=== PATIENT | female | born 1995 | race Hispanic/Latino ===

== ENCOUNTER 2020-03-22 21:31 | Emergency (ER) | payer OTHER, SELFPAY ==
--- NOTE | ~2020-03-22 | CT_ITS ---
EXAMINATION: CTA brain carotid EXAM DATE: 03/22/2020 23:42 INDICATION: Unsteady gait. Headache, dizziness and nausea. TECHNIQUE: Noncontrast head CT. Spiral CTA of the carotid arteries was performed with intravenous i njection 100 cc of Omnipaque 350. Axial, coronal, sagittal reformatted images reviewed. Additional r eformatted images created on dedicated 3-D workstation. NASCET comparable standard used to assess th e degree of arterial stenosis. Spiral CT angiogram cerebral arteries performed with the same intrave nous injection of contrast. Source images of the brain CTA transferred to dedicated workstation for 3 -D rotational image creation. Coronal, sagittal maximum intensity pixel images also reviewed. The d ose-length product (DLP) for this examination was 1888.51 mGy-cm. The exposure was tailored accordi ng to patient size, and iterative reconstruction (ASIR) was used as additional dose reduction techniq ue. There is no prior study for comparison. FINDINGS: There is no carotid plaque or stenosis. The vertebral arteries are codominant. There is rig ht-sided posterior communicating artery dominant posterior cerebral artery. There is no carotid or vertebral basilar arterial dissection or fibromuscular dysplasia. There are no cerebral artery aneur ysms. There is symmetric cerebral artery arborization. The sagittal, transverse and sigmoid sinuses e nhance normally, no venous sinus thrombosis. Internal cerebral veins also enhance normally. There is no acute intraparenchymal hemorrhage. No evidence of intraparenchymal brain mass lesion. N o evidence of acute infarction. There is no mass effect or midline shift. There is no obstructive hyd rocephalus suspected. There are no extra-axial collections. There are no calvarial acute fractures. There are no areas of abnormal enhancement on the postcontrast images. IMPRESSION: 1. Normal CTA brain carotid exam. Reviewed, dictated and finalized at location A.
[2020-03-22 22:05] VITALS: BP 152/88; PULSE 93; RESP 16; TEMP 36.8; O2SAT 100
--- NOTE | 2020-03-22 22:08 | ECG_ITS ---
Measurements Intervals [place] Rate: 77 P: 53 RI: 119 QRS: 61 QRSD: 98 T: 47 QT: 370 QTc: 419 Interpretive Statements SINUS RHYTHM CHANGES TO ECTOPIC ATRIAL RHYTHM WITH SHORT RI INTERVAL BASELINE ARTIFACT- II, III, AVL, AVF, V3-V4 ABNORMAL ECG Electronically Signed On 03-23-2020 7:41:44 CDT by Jemal Hoffmann D.O.
--- NOTE | 2020-03-22 22:18 | ED.DIZZY ---
HPI - Dizziness General Chief Complaint: Dizziness Stated Complaint: dizzy with nausea began yesterday, worsening today Time Seen by Provider: 03/22/20 22:17 Source: patient and family Mode of arrival: ambulatory Limitations: no limitations History of Present Illness HPI Narrative: Patient is a previously healthy 24-year-old female who presents for evaluation of unstable gait, headache and vision changes. Patient states she had noticed a headache that was gradual in onset yesterday, causing some intermittent blurry vision and difficulty with gait. Patient has had 3 near syncopal events per her . He states that he tried to go on a walk this evening with her dogs, and she was unable to due to her gait being so unsteady. He states that she has fallen several times at home. Patient denies any current vision changes. She reports very mild headache. She denies any neck pain. No numbness or weakness. Patient states the dizziness makes her feel very unstable. No current spinning sensation. Patient denies nausea or vomiting. Related Data Allergies Allergy/AdvReac Type Severity Reaction Status Date / Time No Known Allergies Allergy Verified 03/22/20 22:39 Review of Systems Review of Systems: Narrative: CONSTITUTIONAL: Denies fever, chills, or sweats. EYES: Intermittent blurry vision, no current blurred vision ENT: Denies rhinorrhea, congestion, sore throat, or otalgia. Patient denies ear drainage. CARDIOVASCULAR: Denies chest pain, palpitations, or edema. RESPIRATORY: Denies cough or dyspnea. GASTROINTESTINAL: Denies abdominal pain, nausea, vomiting, or diarrhea. GENITOURINARY: Denies dysuria or hematuria. SKIN: Denies rash or itching. MUSCULOSKELETAL: Denies back pain, joint pain, or myalgia. NEUROLOGIC: Reports mild headache, denies numbness or weakness, reports difficulty with ambulation Exam Narrative: Exam Narrative: GENERAL: Awake, alert, conversant HEAD: Normocephalic, atraumatic. EYES: PERRLA and EOMI. ENT: Nares clear, no rhinorrhea or epistaxis. Mucous membranes moist. NECK: Supple. CHEST: No respiratory distress, breathing even and non labored HEART: Regular rate, sinus rhythm ABDOMEN:Non distended, non tender EXTREMITIES: Normal range of motion. No edema. SKIN: Warm, dry, no rash. NEURO: Alert and oriented x3. Finger to nose intact bilaterally, no dysmetria. Patient cannot complete extraocular movements due to dizziness, she is unable to track completely. No facial droop/asymmetry noted bilaterally. Grimace intact. Intact sensation in face. Hearing intact bilaterally. Shoulder shrug intact. Strength 5/5 bilateral upper extremities. Strength 5/5 bilateral lower extremities. Reflexes 2+ patellar. Heel to harris intact bilaterally. I ambulated the patient, she has mild ataxia, at times her gait sways. Is able to walk independently. Course Vital Signs Vital signs: Vital Signs Temperature 36.8 C 03/22/20 22:05 Pulse Rate 93 03/22/20 22:05 Respiratory Rate 16 03/22/20 22:05 Blood Pressure 152/88 H 03/22/20 22:05 Pulse Oximetry 100 03/22/20 22:05 Temperature 36.8 C 03/22/20 22:05 Pulse Rate 86 03/22/20 23:14 Respiratory Rate 20 03/22/20 23:14 Blood Pressure 124/79 03/22/20 23:14 Pulse Oximetry 100 03/22/20 23:14 MDM - Dizziness MDM Narrative Medical decision making narrative: The patient was evaluated for dizziness. Based on neurological assessment and clinical symptoms, patient's vertigo is felt to be likely peripheral in origin. There is no diplopia, dysarthria or dysphagia. Patient was able to ambulate independently, did have some mild gait abnormalities, these resolved with meclizine. Patient was ambulated again and was able to ambulate independently and felt much improved with dizziness resolved. Patient was able to tolerate oral intake. No electrolyte derangements on lab work. No intracranial abnormalities or evidence of CVA. Furthermore, patient had no other CVA type defi
[2020-03-22 22:27] LABS: Basophils Absolute Auto 0.1 K/mm3 (0.0-0.1); Basophils Percent Auto 0.6 % (0.2-1.2); Eosinophils Absolute Auto 0.1 K/mm3 (0-0.3); Eosinophils Percent Auto 1.2 % (0-4.4); Hemoglobin 13.8 g/dL (12.0-15.0); Immature Granulocyte Absolute 0.03 K/mm3 (0.00-0.031); Immature Granulocyte Percent A 0.4 % (0-0.5); Lymphocytes Absolute Auto 3.03 K/mm3 (0.9-3.2); Lymphocytes Percent Auto 36.9 % (18.3-44.2); Mean Corpuscular HGB Conc 34.5 g/dl (32-36); Mean Corpuscular Hemoglobin 31.1 pg (26-34); Mean Corpuscular Volume 90.1 fl (80-100); Mean Platelet Volume 12.9 fl (7.4-10.4); Monocytes Absolute Auto 0.7 K/mm3 (0.1-0.6); Neutrophils Absolute Auto 4.3 K/mm3 (1.3-6.7); Neutrophils Percent Auto 51.9 % (45.5-73.1); Platelet Count Result 184 k/mm3 (150-375); Red Blood Count 4.44 M/mm3 (4.2-5.4); Red Cell Distribution Width 12.3 % (11.5-14.5); White Blood Count 8.2 K/mm3 (4.5-10.0)
[2020-03-22 22:40] VITALS: BP 142/78; BP 143/80; BP 154/84; PULSE 78; PULSE 87; PULSE 89
[2020-03-22 22:43] LABS: Anion Gap 8 mmol/L (8-16); Blood Urea Nitrogen 9 mg/dL (7-17); Calcium 9.6 mg/dL (8.4-10.2); Carbon Dioxide 27 mmol/L (22-30); Chloride 102 mmol/L (98-107); Estimated CRCL calculation 104 ml/min; Estimated Glomerular Filt Rate > 60; Glucose 98 mg/dL (65-105); Potassium 3.8 mmol/L (3.4-5.0); Sodium 137 mmol/L (137-145)
[2020-03-22 22:56] LABS: INR 1.1; Prothrombin Time 14.2 Seconds (11.1-14.7)
[2020-03-22 22:57] LABS: Partial Thromboplastin Time 30.9 SECONDS (22.3-36.8)
[2020-03-22] MEDS: SODIUM CHLORIDE 0.9% IV 1,000 ML 999 ML IV CONT (23:06)
[2020-03-22] MEDS: MECLIZINE HCL 25 MG TABLET PO (23:11)
[2020-03-22 23:14] VITALS: BP 124/79; PULSE 86; RESP 20; O2SAT 100
[2020-03-22 23:24] LABS: Add Urine Microscopic? YES; Appearance Urine Clear (Clear); Bilirubin Urine Negative (Negative); Blood Urine Negative (Negative); Color Urine Yellow (Yellow); Glucose Urine UA Negative (Negative); Ketones Urine Negative (Negative); Leukocyte Esterase Ur Trace LEU/UL (Negative); Mucus Urine Rare /lpf; Nitrate Urine Negative (Negative); Protein Urine Negative (Negative); RBC Urine 0-2 /hpf (0-2); Specific Grav Ur 1.023 (1.001-1.035); Squamous Epithelial Cell Urine Rare /hpf (Few); Urobilinogen Urine Negative mg/dL (<2.0); WBC Urine 0-3 /hpf
[2020-03-22 23:33] LABS: Amphetamine Screen Urine Negative (Negative); Barbiturate Screen Urine Negative (Negative); Benzodiazepines Screen Urine Negative (Negative); Cannabinoid Screen Urine Negative (Negative); Cocaine Screen Urine Negative (Negative); Methadone Screen Urine Negative (Negative); Opiate Screen Urine Negative (Negative); Phencyclidine Screen Urine Negative (Negative)
[2020-03-23] VITALS: BP 100/61; PULSE 76; RESP 20; O2SAT 99
[2020-03-23 01:40] VITALS: BP 111/63; PULSE 75; RESP 16; O2SAT 99
== END 2020-03-23 01:41 | disposition home or self-care (01) ==
PROVIDERS: Emergency Provider Emergency Medicine
DX: R42 Dizziness and giddiness (principal)
CPT/HCPCS: 36415; 70496; 70498; 80048; 80307; 81001; 81025; 84443; 85025; 85610; 85730; 93005; 96360; 99284; A9270; J7030; Q9967

== ENCOUNTER 2021-08-08 02:52 | Emergency (ER) | payer OTHER, SELFPAY ==
[2021-08-08 02:54] VITALS: BP 96/71; PULSE 90; RESP 14; TEMP 36.3; O2SAT 100
[2021-08-08 04:12] VITALS: BP 95/70; PULSE 80; RESP 14; O2SAT 98
--- NOTE | 2021-08-08 05:27 | ED.EYEPROB ---
HPI - Eye Problem General Chief complaint: Eye Problems Stated complaint: right eye swelling/redness Time Seen by Provider: 08/08/21 03:55 History of Present Illness HPI Narrative: Patient is a 25-year-old female who presents ER with right eye irritation. Symptoms began this evening of progress. She removed her contact lenses and put on her glasses. Her right upper and lower lobes have begun to swell and she started to have tearing. She feels like there is something stuck in her eye. Patient reports her contact lenses are monthly's and she has worn them for less than a month. She was sleeping in her contacts last week but not this week. She reports she really cares for them well. No trauma to her eye. She does not think she poked her self in the eye removing her contact. No numbness or tingling to the face or forehead. Related Data Allergies Allergy/AdvReac Type Severity Reaction Status Date / Time No Known Allergies Allergy Verified 08/08/21 02:57 Review of Systems Review of Systems: All systems reviewed & are unremarkable except as noted in HPI and below Constitutional: Constitutional: Denies chills, Denies fever(s) and Denies weakness Eyes: Eyes: Denies change in vision and Reports photophobia Comments: Right eye pain with lid swelling. Increased tearing ENT: Denies nasal congestion and Denies sore throat PMFSH Past Medical History Medical History (Updated 08/08/21 @ 05:52 by Nelson Harris MD) Healthy female adult Surgical History Surgical History (Updated 08/08/21 @ 05:52 by Nelson Harris MD) No history of previous surgery Social History Social History (Updated 08/08/21 @ 05:52 by Nelson Harris MD) Smoking status: Never smoker Exam Narrative: GENERAL: Well-appearing, well-nourished, and in no acute distress. HEAD: Normocephalic, atraumatic. EYES: PERRL and EOMI. visual acuity 20/20 in each eye while wearing glasses. Right eye with scleral injection and edema of the upper and lower lids. No foreign body noted with magnification. Appears to be a small ulceration at the 2 o'clock position of the right cornea that has fluorescein uptake and no dendritic lesions. ENT: Mucous membranes moist. NEURO: No focal deficits. Alert and oriented x3. PSYCH: Normal mood and affect. Course Course Emergency Course: This case with ophthalmology on-call at [facility], Dr. Nelson. The patient has been scheduled for a follow-up exam this morning at [address] Hemphill. It would like patient to receive ocular moxifloxacin 4 times daily. Patient has been given her first dose here and then provided with eyedropper for home. She has been given the contact information for the [facility] ophthalmology urgent care. Vital Signs Vital signs: Vital Signs Temperature 97.3 F L 08/08/21 02:54 Pulse Rate 90 08/08/21 02:54 Respiratory Rate 14 08/08/21 02:54 Blood Pressure 96/71 L 08/08/21 02:54 Pulse Oximetry 100 08/08/21 02:54 Temperature 97.3 F L 08/08/21 02:54 Pulse Rate 85 08/08/21 05:44 Respiratory Rate 14 08/08/21 05:44 Blood Pressure 114/84 08/08/21 05:44 Pulse Oximetry 98 08/08/21 05:44 Discharge Plan Discharge Clinical Impression: Corneal ulcer Patient Disposition: Home, Self-Care Condition: Stable Instructions: Antibiotic Form, Corneal Ulcer (ED) Additional Instructions: You will need to be seen by the ophthalmology urgent care at [facility]. You have an appointment scheduled for 11 AM today 08/08/2021. Contact information is as follows Dr. Hemphill [address] [place] [address] Use your moxifloxacin eyedrops every 6 hours and make sure to take them with you to the appointment. Additionally you should show up to your appointment with your insurance card. Please arrive early to allow yourself time for parking and to walk to the office. Prescriptions: No Ac
[2021-08-08 05:44] VITALS: BP 114/84; PULSE 85; RESP 14; O2SAT 98
== END 2021-08-08 05:45 | disposition home or self-care (01) ==
PROVIDERS: Emergency Provider Emergency Medicine; PCP Pediatrics
DX: H16.001 Unspecified corneal ulcer, right eye (principal)
CPT/HCPCS: 99282; A9270